=== PATIENT | female | born 1985 | race African-American/Black ===

== ENCOUNTER 2019-02-10 15:57 | Emergency (ER) | payer OTHER ==
--- NOTE | 2019-02-10 16:04 | PDOC ---
Rapid Medical Evaluation Time Seen by Provider: 02/10/19 16:02 Medical Evaluation: Allergies Allergy/AdvReac Type Severity Reaction Status Date / Time No Known Allergies Allergy Verified 03/03/16 08:52 02/10/19 16:03 HPI: Lower back pain started yesterday. No radicular symptoms PE: No gross deficits Orders: Nothing. Discharge Disposition - Diagnosis Back strain - Referrals - Patient Instructions - Post Discharge Activity
[2019-02-10 16:09] VITALS: BP 122/83; PULSE 83; TEMP 98.3; BMI 50.2
[2019-02-10] MEDS ORDERED: CYCLOBENZAPRINE HCL 10 MG TABLET (FP) PO ONE (16:54)
[2019-02-10] MEDS ORDERED: KETOROLAC TROMETHAMINE 60 MG/2 ML VIAL IM ONE (16:54)
[2019-02-10] MEDS ORDERED: KETOROLAC TROMETHAMINE 60 MG/2 ML VIAL ONE (17:05)
[2019-02-10] MEDS ORDERED: CYCLOBENZAPRINE HCL 10 MG TABLET (FP) ONE (17:05)
--- NOTE | 2019-02-10 17:06 | PDOC ---
History of Present Illness - General Chief Complaint: Back Pain Stated Complaint: LOWER BACK PAIN Time Seen by Provider: 02/10/19 16:02 History Source: Patient Exam Limitations: No Limitations - History of Present Illness Initial Comments: 02/10/19 17:01 23 year old female with history of diverticulitis presents for exacerbation of back pain since Sunday. Reports taking alleve with no relieve of symptoms. Patient states no bowel or bladder dysfunction, no numbness or tingling in lower limbs. Occurred: reports: other (Sunday,3 days ago) Severity: reports: mild Pain Location: reports: back Method of Injury: Yes: unknown Modifying Factors: improves with: None Loss of Consciousness: no loss of consciousness Associated Symptoms (Fall): denies symptoms Past History - Travel Traveled outside of the country in the last 30 days: No Close contact w/someone who was outside of country & ill: No - Past Medical History Allergies/Adverse Reactions: Allergies Allergy/AdvReac Type Severity Reaction Status Date / Time No Known Allergies Allergy Verified 02/10/19 16:05 Home Medications: Ambulatory Orders Cyclobenzaprine HCl [Flexeril -] 10 mg PO HS #7 tablet 02/10/19 Naproxen 500 mg PO BID #20 tablet 02/10/19 GI Disorders: Yes (diverticulitis) - Surgical History Abdominal Surgery: (s/p colostomy) GI Surgery: Yes - Psycho Social/Smoking Cessation Hx Smoking History: Former smoker Have you smoked in the past 12 months: Yes Number of Cigarettes Smoked Daily: 4 If you are a former smoker, when did you quit?: [phone] Information on smoking cessation initiated: Yes Hx Alcohol Use: Yes Drug/Substance Use Hx: No Substance Use Type: None Trauma Specific PMHX - Complaint Specific PMHX Arthritis: No Back Injury: No Neck Injury: No Hx Sacro Iliac Joint Dysfunction: No Review of Systems - Review of Systems Able to Perform ROS?: Yes Is the patient limited Malay proficient: No Constitutional: No: Chills, Fever HEENTM: No: Eye Pain, Ocular Prothesis, Ear Discharge, Nose Pain, Throat Pain Respiratory: No: Cough, Orthopnea, Shortness of Breath Cardiac (ROS): No: Chest Pain, Edema, Irregular Heart Rate, Palpitations ABD/GI: No: Poor Appetite, Poor Fluid Intake, Vomiting : No: Dysuria, Incontinence Musculoskeletal: Yes: Back Pain. No: Joint Pain, Neck Pain Integumentary: No: Bruising, Erythema Neurological: No: Numbness, Paresthesia *Physical Exam - Vital Signs Last Vital Signs Temp Pulse Resp BP Pulse Ox 98.3 F 83 16 122/83 99 02/10/19 16:05 02/10/19 16:05 02/10/19 16:05 02/10/19 16:05 02/10/19 16:05 - Physical Exam General Appearance: Yes: Nourished, Appropriately Dressed HEENT: positive: TMs Normal, Pharynx Normal Neck: positive: Supple. negative: Lymphadenopathy (R), Lymphadenopathy (L) Respiratory/Chest: positive: Lungs Clear, Normal Breath Sounds Cardiovascular: positive: Regular Rhythm, Regular Rate Musculoskeletal: negative: CVA Tenderness (L), Decreased Range of Motion, Vertebral Tenderness Extremity: positive: Normal Capillary Refill Neurologic: positive: Fully Oriented Medical Decision Making - Medical Decision Making 02/10/19 17:06 23 year old female with history of diverticulitis presents for exacerbation of back pain since Sunday. Exacerbation of back pain -toradol and muscle relaxant given Discharge - Discharge Information Problems reviewed: Yes Clinical Impression/Diagnosis: Back strain Qualifiers: Encounter type: initial encounter Qualified Code(s): S39.012A - Strain of muscle, fascia and tendon of lower back, initial encounter Condition: Good Disposition: HOME - Admission No - Additional Discharge Information Prescriptions: Cyclobenzaprine HCl [Flexeril -] 10 mg PO HS #7 tablet Naproxen 500 mg PO BID #20 tablet - Follow up/Referral Referrals: Maria Victoria Riggs MD [Staff Physician] - (call for appointment ) - Patient Discharge Instructions Patient Printed Discharge Instructions: DI for Acne Additional Instructions: -Activity as tolerated -Do not stay laying in bed for more than 72 hours at a time -May apply warm compress for 20 minutes 3 times daily Take medication as prescribed - Post Discharge Activity Work/Back to School Note: Back to Work
== END 2019-02-10 17:27 | disposition home or self-care (01) ==
LOC: JERFT 15:57
PROC: 3E0233Z Introduction of Anti-inflammatory into Muscle, Percutaneous Approach (ICD-10-PCS; principal; 2019-02-10)
DX: S39.012A Strain of muscle, fascia and tendon of lower back, initial encounter (principal); X58.XXXA Exposure to other specified factors, initial encounter; Y93.89 Activity, other specified; Y92.89 Other specified places as the place of occurrence of the external cause; Y99.8 Other external cause status; Z87.19 Personal history of other diseases of the digestive system; Z98.890 Other specified postprocedural states
CPT/HCPCS: 96372; 99281-25

== ENCOUNTER 2023-01-24 10:51 | Observation (INO) | payer OTHER ==
[2023-01-24] MEDS ORDERED: ONDANSETRON 4 MG/2 ML VIAL IVPUSH ONE (12:01)
[2023-01-24] MEDS ORDERED: ACETAMINOPHEN 1000 MG/100 ML BAG IVPB ONE (12:01)
[2023-01-24] MEDS ORDERED: METOCLOPRAMIDE HCL INJECTION 10 MG/2 ML VIAL IVPB ONE (12:05)
[2023-01-24 12:19] LABS: BASO % 0.3 % (0-2.0); EOS % 1.2 % (0-4.5); HEMATOCRIT 39.6 % (32.4-45.2); HEMOGLOBIN 13.2 GM/dL (10.7-15.3); LYMPH % 24.5 % (8-40); MCH 28.3 pg (25.7-33.7); MCHC 33.4 g/dl (32.0-36.0); MEAN CELL VOLUME 84.9 fl (80-96); MEAN PLT VOLUME 8.8 fl (7.5-11.1); MONO % 6.1 % (3.8-10.2); NEUT % 67.9 % (42.8-82.8); PLATELET COUNT 332 10^3/uL (134-434); RBC 4.66 M/mm3 (3.60-5.2); WHITE BLOOD COUNT 8.4 K/mm3 (4.0-10.0)
[2023-01-24 12:23] LABS: INR 0.94 (0.83-1.09); PROTHROMBIN TIME (PATIENT) 10.9 SEC (9.7-13.0)
[2023-01-24 12:26] LABS: ACTIVATED PTT 36.2 SECONDS (25.2-36.5)
[2023-01-24 12:32] LABS: POTASSIUM 4.1 mmol/L (3.5-5.1)
[2023-01-24 12:33] LABS: CALCIUM 9.7 mg/dL (8.5-10.1)
[2023-01-24 12:34] LABS: ALBUMIN 3.9 g/dl (3.4-5.0)
[2023-01-24 12:35] LABS: BLOOD UREA NITROGEN 14.3 mg/dL (7-18)
[2023-01-24 12:37] LABS: CREATININE 0.9 mg/dL (0.55-1.3)
[2023-01-24 12:39] LABS: TOT PROT 7.5 g/dl (6.4-8.2)
[2023-01-24 12:40] LABS: BILIRUBIN,TOTAL 0.4 mg/dL (0.2-1)
[2023-01-24] MEDS ORDERED: METOCLOPRAMIDE HCL INJECTION 10 MG/2 ML VIAL ONE (12:52)
[2023-01-24] MEDS ORDERED: ACETAMINOPHEN INJECTION 100 ML IVPB ONE (12:52)
[2023-01-24] MEDS ORDERED: TRIMETHOBENZAMIDE HCL 200MG/2ML INJ IM PRN (17:07)
[2023-01-24] MEDS ORDERED: ACETAMINOPHEN 1000 MG/100 ML BAG IVPB PRN (17:08)
[2023-01-24] MEDS ORDERED: amLODIPine BESYLATE 5 MG TABLET (FP) ONE (17:56)
[2023-01-24] MEDS: amLODIPine BESYLATE 5 MG TABLET (FP) PO SCH (17:59)
[2023-01-24] MEDS ORDERED: NAPROXEN 250 MG TABLET PO PRN (19:54)
[2023-01-24 20:40] VITALS: BMI 54.6
[2023-01-24] MEDS ORDERED: MELATONIN 5 MG TABLETS PO ONE (20:48)
[2023-01-24] MEDS: ENOXAPARIN NA (PORCINE) 40 MG/0.4 ML DISP.SYRIN SQ SCH (21:22)
[2023-01-24] MEDS ORDERED: RIMEGEPANT SULFATE 75 MG TAB.RAPDIS SL PRN (23:11)
[2023-01-25 07:40] LABS: BASO % 0.5 % (0-2.0); EOS % 1.6 % (0-4.5); HEMATOCRIT 35.8 % (32.4-45.2); HEMOGLOBIN 11.7 GM/dL (10.7-15.3); LYMPH % 31.8 % (8-40); MCH 28.2 pg (25.7-33.7); MCHC 32.7 g/dl (32.0-36.0); MEAN CELL VOLUME 86.1 fl (80-96); MEAN PLT VOLUME 8.8 fl (7.5-11.1); MONO % 8.4 % (3.8-10.2); NEUT % 57.7 % (42.8-82.8); PLATELET COUNT 299 10^3/uL (134-434); RBC 4.16 M/mm3 (3.60-5.2); RDW 14.9 % (11.6-15.6); WHITE BLOOD COUNT 7.9 K/mm3 (4.0-10.0)
[2023-01-25 08:19] LABS: POTASSIUM 4.2 mmol/L (3.5-5.1)
[2023-01-25 08:36] LABS: CHOLESTEROL 164 mg/dL (50-200)
[2023-01-25 08:37] LABS: LDL CHOLESTEROL (ONLY SJRH) 101 mg/dL (5-100)
[2023-01-25 08:40] LABS: HDL CHOLESTEROL 47 mg/dL (40-60)
[2023-01-25 09:01] LABS: ALBUMIN 3.2 g/dl (3.4-5.0); BLOOD UREA NITROGEN 15.1 mg/dL (7-18); CALCIUM 8.6 mg/dL (8.5-10.1); MAGNESIUM 2.2 mg/dL (1.8-2.4)
[2023-01-25 09:04] LABS: CREATININE 0.7 mg/dL (0.55-1.3); PHOSPHOROUS 3.9 mg/dL (2.5-4.9)
[2023-01-25 09:06] LABS: BILIRUBIN,TOTAL 0.3 mg/dL (0.2-1); TOT PROT 6.4 g/dl (6.4-8.2)
[2023-01-25] MEDS ORDERED: ACETAMINOPHEN/CAFFEINE/BUTALBITAL 1 TAB PO PRN (09:46)
[2023-01-25] MEDS ORDERED: NADOLOL 40 MG TABLET (FP) PO SCH (10:00)
[2023-01-25] MEDS ORDERED: FLU VACCINE (FLULAVAL) PF 60 MCG/0.5 ML SYRINGE 2023-2024 IM ONE (10:00)
[2023-01-25] MEDS ORDERED: ATORVASTATIN CA 40 MG TABLET (FP) PO SCH (10:03)
[2023-01-25] MEDS: amLODIPine BESYLATE 5 MG TABLET (FP) PO SCH (10:15)
[2023-01-25] MEDS: LOSARTAN POTASSIUM 50 MG TABLET PO SCH (10:15)
[2023-01-25] MEDS: ENOXAPARIN NA (PORCINE) 40 MG/0.4 ML DISP.SYRIN SQ SCH ×2 (10:15→21:54)
[2023-01-25 11:32] LABS: URINE APPEARANCE TURBID; URINE BILIRUBIN NEGATIVE (NEGATIVE); URINE COLOR YELLOW; URINE GLUCOSE (UA) NEGATIVE (NEGATIVE); URINE KETONE NEGATIVE (NEGATIVE); URINE LEUK ESTERASE NEGATIVE (NEGATIVE); URINE NITRITE NEGATIVE (NEGATIVE); URINE PROTEIN NEGATIVE (NEGATIVE); URINE UROBILINOGEN 0.2 mg/dL (0.2-1.0)
[2023-01-25] MEDS ORDERED: ACETAMINOPHEN 1000 MG/100 ML BAG IVPB ONE (20:08)
[2023-01-25] MEDS ORDERED: SUMATRIPTAN SUCCINATE 6 MG/0.5 ML VIAL SQ ONE (21:02)
[2023-01-25] MEDS: TOPIRAMATE 25 MG TABLET PO SCH (21:54)
[2023-01-25] MEDS ORDERED: ATORVASTATIN CA 20 MG TABLET (FP) PO SCH (22:00)
[2023-01-26] MEDS ORDERED: NADOLOL 20 MG TABLET (FP) PO SCH (05:43)
[2023-01-26] MEDS: amLODIPine BESYLATE 5 MG TABLET (FP) PO SCH (10:28)
[2023-01-26] MEDS: ENOXAPARIN NA (PORCINE) 40 MG/0.4 ML DISP.SYRIN SQ SCH (10:28)
[2023-01-26] MEDS: LOSARTAN POTASSIUM 50 MG TABLET PO SCH (10:29)
[2023-01-26] MEDS: TOPIRAMATE 25 MG TABLET PO SCH (10:29)
[2023-01-26 12:22] VITALS: BP 144/94; PULSE 68; RESP 18; TEMP 97.9
== END 2023-01-26 14:25 | disposition home or self-care (01) ==
LOC: JER 10:51 → JERBED 16:52 → J4W 20:21
PROVIDERS: ADMIT Internal Medicine; ATTEND Internal Medicine
PROC: 3E033NZ Introduction of Analgesics, Hypnotics, Sedatives into Peripheral Vein, Percutaneous Approach (ICD-10-PCS; principal; 2023-01-24)
PROC: 3E023GC Introduction of Other Therapeutic Substance into Muscle, Percutaneous Approach (ICD-10-PCS; 2023-01-24)
PROC: 3E033GC Introduction of Other Therapeutic Substance into Peripheral Vein, Percutaneous Approach (ICD-10-PCS; 2023-01-24)
PROC: 3E023GC Introduction of Other Therapeutic Substance into Muscle, Percutaneous Approach (ICD-10-PCS; 2023-01-24)
DX: G43.909 Migraine, unspecified, not intractable, without status migrainosus (principal); R07.89 Other chest pain; E78.5 Hyperlipidemia, unspecified; Z91.148 Patient's other noncompliance with medication regimen for other reason; I10 Essential (primary) hypertension; Z87.891 Personal history of nicotine dependence
CPT/HCPCS: 36415; 70450-TC; 70496-TC; 70498-TC; 71045-TC-FY; 71275-TC; 80053; 80061; 81003; 82550; 82553; 82962; 83036; 83735; 84100; 84484; 84703; 85025; 85610; 85730; 86850; 86900; 86901; 93005; 93010; 96372; 96374; 96375; 96376; 99285-25; G0378; Q9967

== ENCOUNTER 2023-07-26 12:38 | Emergency (ER) | payer OTHER ==
[2023-07-26 12:43] VITALS: BP 141/89; PULSE 97; RESP 18; TEMP 99.9; BMI 46.0
[2023-07-26] MEDS: IBUPROFEN 600 MG TABLET (FP) PO ONE (13:40)
[2023-07-26] MEDS ORDERED: KETOROLAC TROMETHAMINE 30 MG/1 ML VIAL ONE (13:42)
[2023-07-26] MEDS ORDERED: DEXAMETHASONE SOD PHOSPHATE 10 MG/1 ML VIAL ONE (13:42)
[2023-07-26] MEDS ORDERED: ACETAMINOPHEN INJECTION 100 ML IVPB ONE (13:42)
[2023-07-26] MEDS ORDERED: LIDOCAINE VISCOUS 2% ORAL/TOP 15 ML UNIT-DOSE CUP ONE (13:44)
[2023-07-26] MEDS: LIDOCAINE VISCOUS 2% ORAL/TOP 15 ML UNIT-DOSE CUP MM ONE (13:48)
[2023-07-26 13:53] LABS: THROAT:GRP A STREP DETECTED (NOTDETECTED)
[2023-07-26] MEDS: DEXAMETHASONE SOD PHOSPHATE 10 MG/1 ML VIAL IVPUSH ONE (13:55)
[2023-07-26] MEDS: SODIUM CHLORIDE 0.9% 500 ML INFUS.BAG IV ONE (13:55)
[2023-07-26] MEDS: ACETAMINOPHEN 1000 MG/100 ML BAG IVPB ONE (14:00)
[2023-07-26] MEDS: KETOROLAC TROMETHAMINE 30 MG/1 ML VIAL IVPUSH ONE (14:00)
[2023-07-26 14:16] LABS: BASO % 0.5 % (0-2.0); EOS % 0.1 % (0-4.5); HEMATOCRIT 42.2 % (32.4-45.2); HEMOGLOBIN 13.7 GM/dL (10.7-15.3); LYMPH % 6.2 % (8-40); MCH 28.4 pg (25.7-33.7); MCHC 32.5 g/dl (32.0-36.0); MEAN CELL VOLUME 87.3 fl (80-96); MEAN PLT VOLUME 8.7 fl (7.5-11.1); MONO % 6.6 % (3.8-10.2); NEUT % 86.6 % (42.8-82.8); PLATELET COUNT 286 10^3/uL (134-434); RBC 4.83 M/mm3 (3.60-5.2); RDW 15.1 % (11.6-15.6); WHITE BLOOD COUNT 18.3 K/mm3 (4.0-10.0)
[2023-07-26 14:32] LABS: POTASSIUM 3.8 mmol/L (3.5-5.1)
[2023-07-26 14:34] LABS: CALCIUM 10.3 mg/dL (8.5-10.1)
[2023-07-26 14:38] LABS: CREATININE 0.9 mg/dL (0.55-1.3)
[2023-07-26 14:39] LABS: BILIRUBIN,TOTAL 0.6 mg/dL (0.2-1); TOT PROT 8.1 g/dl (6.4-8.2)
[2023-07-26] MEDS ORDERED: ONDANSETRON 4 MG/2 ML VIAL ONE (16:23)
[2023-07-26] MEDS: ONDANSETRON 4 MG/2 ML VIAL IVPUSH ONE (16:30)
[2023-07-26] MEDS: morphine CARPU-JECT 2 MG/1 ML DISP.SYRIN IVPUSH ONE (16:33)
[2023-07-26] MEDS ORDERED: CLINDAMYCIN 600MG PREMIX IVPB 600 MG/50 ML BAG IVPB ONE (17:43)
[2023-07-26] MEDS: CLINDAMYCIN 600MG PREMIX IVPB 600 MG/50 ML BAG IVPB ONE (18:00)
== END 2023-07-26 18:54 | disposition short-term general hospital (02) ==
LOC: JERFT 12:38 → JER 12:38
PROC: 3E033GC Introduction of Other Therapeutic Substance into Peripheral Vein, Percutaneous Approach (ICD-10-PCS; principal; 2023-07-26)
PROC: 3E033GC Introduction of Other Therapeutic Substance into Peripheral Vein, Percutaneous Approach (ICD-10-PCS; 2023-07-26)
PROC: 3E033GC Introduction of Other Therapeutic Substance into Peripheral Vein, Percutaneous Approach (ICD-10-PCS; 2023-07-26)
PROC: 3E033GC Introduction of Other Therapeutic Substance into Peripheral Vein, Percutaneous Approach (ICD-10-PCS; 2023-07-26)
PROC: 3E033GC Introduction of Other Therapeutic Substance into Peripheral Vein, Percutaneous Approach (ICD-10-PCS; 2023-07-26)
PROC: 3E033GC Introduction of Other Therapeutic Substance into Peripheral Vein, Percutaneous Approach (ICD-10-PCS; 2023-07-26)
DX: R07.0 Pain in throat (principal); J36 Peritonsillar abscess; Z20.822 Contact with and (suspected) exposure to COVID-19
CPT/HCPCS: 0241U-QW; 36415; 70491-TC; 80053; 84703; 85025; 87651; 99285-25; J0131; J1100; Q9967